=== PATIENT | male | born 1965 | race Caucasian/White ===

== ENCOUNTER 2016-12-13 10:39 | Emergency (ER) | payer SELFPAY ==
[~2016-12-13] VITALS: Ht 177.8 cm; Wt 75.5 kg
[~2016-12-13 10:39] MED LIST: CEPH500C3 PO; DILA2TAB4 PO; IBUP800T23 PO; PERC5TAB12 PO
[2016-12-13 10:41] VITALS: BP 130/75; PULSE 78; RESP 20; TEMP 97.6; O2SAT 97
--- NOTE | 2016-12-13 11:20 | PD ---
HPI Chief Complaint: Musculoskeletal Complaint Time Seen by Provider: 11:19 Travel History International Travel<30 days: No Contact w/Intl Traveler<30days: No Traveled to known affect area: No History of Present Illness HPI Patient 51-year-old male who's had a remote right inguinal hernia repair and mesh implant by Dr. Burns presents with right groin pain gradually worsening over the past month. Patient denies any nausea vomiting diarrhea. Patient states the pain is been gradually getting worse sharp in nature. Denies any testicular pain and dysuria. Patient is wondering if the mesh is slipped and has not been able to follow up with a primary care physician or surgeon because he does not have any insurance. He denies any fevers. Denies abdominal pain. PFSH Past Medical History Blood Disorders: No Bipolar Disorder: Yes Anxiety: Yes Depression: No Cancer: No Cardiac Catheterization: Yes (2009) Cardiovascular Problems: Yes (TWO STENTS ) Chest Pain: Yes Diminished Hearing: No Endocrine: No Genitourinary: No Hypertension: Yes Immune Disorder: No Inguinal Hernia: Yes Musculoskeletal: No Neurologic: No Psychiatric: Yes Reproductive: No Respiratory: No Past Surgical History Abdominal Surgery: Yes (hernia) Coronary Stent: Yes (x2 ) Pacemaker: No Tonsillectomy: Yes Other Surgery: Yes Social History Alcohol Use: No (RARELY) Tobacco Use: No (QUIT 2009) Substance Use: Yes ( marijuana daily, cocaine within last 72 hours) Allergies-Medications (Allergen,Severity, Reaction): Coded Allergies: *MDRO Multi-Drug Resistant Organism (Verified Allergy, Unknown, 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 HEAD: Atraumatic. Normocephalic. EYES: Pupils equal and round. No scleral icterus. No injection or drainage. ENT: No nasal bleeding or discharge. Mucous membranes pink and moist. NECK: Trachea midline. No JVD. CARDIOVASCULAR: Regular rate and rhythm. No murmur appreciated. RESPIRATORY: No accessory muscle use. Clear to auscultation. Breath sounds equal bilaterally. GASTROINTESTINAL: Abdomen soft, non-tender, nondistended. Hepatic and splenic margins not palpable. No rebound no percussive tenderness. GENITOURINARY: Testes and scrotum normal, cremasteric reflex present. Grossly normal penis no discharge. Patient does have some minimal pain to superficial palpation of the right groin. There is no air overlying erythema. No swelling no fluid collection no wound. There is no hernia. MUSCULOSKELETAL: No obvious deformities. No clubbing. No cyanosis. No edema. NEUROLOGICAL: Awake and alert. No obvious cranial nerve deficits. Motor grossly within normal limits. Normal speech. PSYCHIATRIC: Appropriate mood and affect; insight and judgment normal. Data Data Last Documented VS Vital Signs Date Time Temp Pulse Resp B/P Pulse Ox O2 Delivery O2 Flow Rate FiO2 12/13/16 10:41 97.6 78 20 130/75 97 Room Air Orders Urinalysis - C+S If Indicated (12/13/16 11:19) Ibuprofen (Motrin) (12/13/16 11:30) MDM Medical Decision Making Medical Screen Exam Complete: Yes Emergency Medical Condition: Yes Differential Diagnosis Right groin pain, urinary tract infection unlikely, and trapped hernia unlikely , strangulated hernia excluded clinically. Narrative Course Patient is a 51-year-old male presents emergency department for right inguinal pain. Patient is requesting imaging studies to assess to the mesh location. At this time he does have some pain and he drove. Himself. Ibuprofen has been ordered for the patient and narcotic pain medicine is contraindicated this patient plans on driving himself home. I discussed with him and that at this time there is no hernia can be palpated and no indication that he is obstipated , has a small bowel obstruction, entrapped hernia. The patient has been counseled on his CAT scan and there is no emergent reason for CAT scan at this time. I recommended that he have a urinary test. And stepped out to order that. Shortly after I stepped out patient became aggravated complaints nurses and started pacing the stephens. He appears to be in no apparent distress. The patient is quite upset that I will not be ordering a CAT scan. He eloped prior to having given a urine test or with me having reexamined and counseled him. Diagnosis Primary Impression: Groin pain Qualified Code: R10.31 - Groin pain, right Scripts No Active Prescriptions or Reported Meds Disposition: 07 AGAINST MEDICAL ADVICE Condition: Stable Serra,Bull J MD Dec 13, 2016 11:20 Bull Serra MD Dec 13, 2016 11:20
[2016-12-13] MEDS ORDERED: IBUPROFEN 600 MG TAB PO ONE (11:30)
== END 2016-12-13 12:02 | disposition left against medical advice (07) ==
LOC: NEPD 10:39
DX: R10.31 Right lower quadrant pain (principal)
CPT/HCPCS: 99282